=== PATIENT | female | born 1985 | race Caucasian/White ===

== ENCOUNTER 2019-06-12 12:25 | Observation (INO) | payer OTHER ==
--- NOTE | 2019-06-12 13:24 | RAD REPORT ---
EXAM DESCRIPTION: CT - Head Brain Wo Cont - 06/12/2019 1:18 pm CLINICAL HISTORY: NUMBNESS Headache, drowsiness COMPARISON: No comparisons TECHNIQUE: All CT scans are performed using dose optimization technique as appropriate and may inclu de automated exposure control or mA/KV adjustment according to patient size. FINDINGS: No intracranial hemorrhage, hydrocephalus or extra-axial fluid collection.No areas of brai n edema or evidence of midline shift. The paranasal sinuses and mastoids are clear. The calvarium is intact. IMPRESSION: No acute intracranial abnormality.
[2019-06-12 13:27] LABS: Absolute Lymphocytes (CBC) 1.6 K/uL (0.7-4.9); Basophils % 0.7 % (0-1.3); Hematocrit 40.7 % (36.0-45.0); Lymphocytes % 18.3 % (15.3-44.8); MPV 10.2 fL (7.6-11.3); RBC Red Blood Cell Count 4.59 M/uL (3.86-4.86)
[2019-06-12 13:59] LABS: Potassium 3.9 mmol/L (3.5-5.1)
[2019-06-12] MEDS ORDERED: METOCLOPRAMIDE 10 MG/2mL INJ ONE (14:03)
[2019-06-12] MEDS ORDERED: DIPHENHYDRAMINE 50 MG/ML VIAL ONE (14:04)
--- NOTE | 2019-06-12 14:09 | EDPHYS ---
Physician Documentation [facility] Name: Saira Dixon Age: 34 yrs Sex: Female : 1985 Arrival Date: 06/12/2019 Time: 12:27 Bed 26 Private MD: ED Physician Brendan Potter HPI: 06/12 13:51 This 34 yrs old Female presents to ER via Ambulatory with complaints of gs Numbness. 13:51 The patient's problem is reported as paresthesias, in left side of face, really gs hyperesthesia. Onset: The symptoms/episode began/occurred today, at 00:00. Duration: The episode is continuous. Context: occurred at home. The symptoms are alleviated by nothing. The symptoms are aggravated by nothing. Associated signs and symptoms: Pertinent positives: headache. Severity of symptoms: At their worst the symptoms were moderate in the emergency department the symptoms are unchanged. The patient has experienced similar episodes in the past, a few times. 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 - Social history:: Smoking status: unknown. - Ebola Screening: : No symptoms or risks identified at this time. ROS: 13:51 All other systems are negative. gs Exam: 13:51 Head/Face: Normocephalic, atraumatic. Eyes: Pupils equal round and reactive to light, gs extra-ocular motions intact. Lids and lashes normal. Conjunctiva and sclera are non-icteric and not injected. Cornea within normal limits. Periorbital areas with no swelling, redness, or edema. ENT: Nares patent. No nasal discharge, no septal abnormalities noted. Tympanic membranes are normal and external auditory canals are clear. Oropharynx with no redness, swelling, or masses, exudates, or evidence of obstruction, uvula midline. Mucous membranes moist. Neck: Trachea midline, no thyromegaly or masses palpated, and no cervical lymphadenopathy. Supple, full range of motion without nuchal rigidity, or vertebral point tenderness. No Meningismus. Chest/axilla: Normal chest wall appearance and motion. Nontender with no deformity. No lesions are appreciated. Cardiovascular: Regular rate and rhythm with a normal S1 and S2. No gallops, murmurs, or rubs. Normal PMI, no JVD. No pulse deficits. Respiratory: Lungs have equal breath sounds bilaterally, clear to auscultation and percussion. No rales, rhonchi or wheezes noted. No increased work of breathing, no retractions or nasal flaring. Abdomen/GI: Soft, non-tender, with normal bowel sounds. No distension or tympany. No guarding or rebound. No evidence of tenderness throughout. Back: No spinal tenderness. No costovertebral tenderness. Full range of motion. Skin: Warm, dry with normal turgor. Normal color with no rashes, no lesions, and no evidence of cellulitis. MS/ Extremity: Pulses equal, no cyanosis. Neurovascular intact. Full, normal range of motion. 13:51 Constitutional: The patient appears alert, awake, comfortable. 13:51 Neuro: Orientation: is normal, Mentation: is normal, Memory: is normal, Cranial nerves: normal except increased pain left face, Cerebellar function: is grossly normal, Motor: is normal, Sensation: pin prick testing is normal. Vital Signs: 13:14 BP 141 / 92; Pulse 85; Resp 18; Pulse Ox 100% on R/A; mg2 14:30 BP 134 / 85; Pulse 83; Resp 18; Pulse Ox 100% on R/A; mg2 15:21 BP 124 / 77; Pulse 99; Resp 18; Pulse Ox 99% on R/A; mg2 15:45 BP 124 / 66; Pulse 90; Resp 18; Temp 98.5; Pulse Ox 100% on R/A; Pain 0/10; mg2 NIH Stroke Scale Scores: 14:06 NIHSS Score: 0 gs 15:21 NIHSS Score: 0 mg2 MDM: 13:00 Patient medically screened. 13:51 Differential diagnosis: CVA, TIA, metabolic disorder, migraine,trigeminal neuralgia. Data reviewed: vital signs, nurses notes. Response to treatment: the patient's symptoms have markedly improved after treatment, and as a result, I will discharge patient. 14:08 ED course: no tpa outside of both windows. 06/12 13:03 Order name: CBC with Diff; Complete Time: 14:03 06/12 13:03 Order name: Basic Metabolic Panel; Complete Time: 14:03 06/12 13:07 Order name: CT Head Brain wo Cont; Complete Time: 13:26 06/12 13:03 Order name: EKG; Complete Time: 13:05 06/12 13:03 Order name: EKG - Nurse/Tech; Complete Time: 13:05 Administered Medications: 14:13 Drug: Benadryl 12.5 mg Route: IVP; Site: right antecubital; mg2 16:02 Follow up: Response: No adverse reaction; Marked relief of symptoms mg2 14:14 Drug: Reglan 5 mg Route: IVP; Site: right antecubital; mg2 16:02 Follow up: Response: No adverse reaction; Marked relief of symptoms mg2 Disposition: 06/12/19 14:08 Hospitalization ordered by Delicia Bradley for Observation. Preliminary diagnosis are Headache, Atypical facial pain. - Bed requested for Telemetry/MedSurg (observation). - Status is Observation. mg2 - Condition is Stable. - Problem is new. - Symptoms are unchanged. UTI on Admission? No NIH Stroke Scale - NIH Stroke Score Date: 06/12/2019 Time: 14:06 Total Score = 0 1a. Level of Consciousness (LOC) - 0(Alert) 1b. Level of Consciousness (LOC) (Year \T\ Age) - 0(Both) 1c. LOC Commands (Open \T\ Closes Eyes/Agricultural Engineer) - 0(Both) 2. Best Gaze (Lateral Gaze Paresis) - 0(Normal) 3. Visual Field Loss - 0(No visual loss) 4. Facial Palsy - 0(Normal) 5a. Left Arm: Motor (10-second hold) - 0(No drift) 5b. Right Arm: Motor (10-second hold) - 0(No drift) 6a. Left Leg: Motor (5-second hold - always test supine) - 0(No drift) 6b. Right Leg: Motor (5-second hold - always test supine) - 0(No drift) 7. Limb Ataxia (finger/nose \T\ heel/moody - test with eyes open) - 0(Absent) 8. Sensory Loss (pinprick arms/legs/face) - 0(Normal) 9. Best Language: Aphasia (description/naming/reading) - 0(No aphasia) 10. Dysarthria (speech clarity - read or repeat words) - 0(Normal) 11. Extinction and Inattention (visual/tactile/auditory/spatial/personal) - 0(No abnormality) Initials: NIH Stroke Scale - NIH Stroke Score Date: 06/12/2019 Time: 15:21 Total Score = 0 1a. Level of Consciousness (LOC) - 0(Alert) 1b. Level of Consciousness (LOC) (Year \T\ Age) - 0(Both) 1c. LOC Commands (Open \T\ Closes Eyes/Agricultural Engineer) - 0(Both) 2. Best Gaze (Lateral Gaze Paresis) - 0(Normal) 3. Visual Field Loss - 0(No visual loss) 4. Facial Palsy - 0(Normal) 5a. Left Arm: Motor (10-second hold) - 0(No drift) 5b. Right Arm: Motor (10-second hold) - 0(No drift) 6a. Left Leg: Motor (5-second hold - always test supine) - 0(No drift) 6b. Right Leg: Motor (5-second hold - always test supine) - 0(No drift) 7. Limb Ataxia (finger/nose \T\ heel/moody - test with eyes open) - 0(Absent) 8. Sensory Loss (pinprick arms/legs/face) - 0(Normal) 9. Best Language: Aphasia (description/naming/reading) - 0(No aphasia) 10. Dysarthria (speech clarity - read or repeat words) - 0(Normal) 11. Extinction and Inattention (visual/tactile/auditory/spatial/personal) - 0(No abnormality) Initials: mg2 Signatures: Dispatcher [employer] EDW[facility] Jaimie Akins Gregory, MD MD Tulio Smart RN RN mg2 Corrections: (The following items were deleted from the chart) 15:17 14:08 Hospitalization Ordered by Delicia Bradley MD for Observation. Preliminary bd diagnosis is Headache; Atypical facial pain. Bed requested for Telemetry/MedSurg (observation). Status is Observation. Condition is Stable. Problem is new. Symptoms are unchanged. UTI on Admission? No. 16:03 15:17 06/12/2019 14:08 Hospitalization Ordered by Delicia Bradley MD for mg2 Observation. Preliminary diagnosis is Headache; Atypical facial pain. Bed requested for Telemetry/MedSurg (observation). Status is Observation. Condition is Stable. Problem is new. Symptoms are unchanged. UTI on Admission? No. bd
--- NOTE | 2019-06-12 14:09 | ER ---
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 Wagoner and out on gabapentin and aspirin, states Dr. Wagoner told her she had several mini strokes. Transition of care: patient was not received from another setting of care. Onset of symptoms was June 12, 2019. Risk Assessment: Do you want to hurt yourself or someone else? Patient reports no desire to harm self or others. Initial Sepsis Screen: Does the patient meet any 2 criteria? No. Patient's initial sepsis screen is negative. Does the patient have a suspected source of infection? No. Patient's initial sepsis screen is negative. Care prior to arrival: None. 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 - Social history:: Smoking status: unknown. - Ebola Screening: : No symptoms or risks identified at this time. Screenin:15 Abuse screen: Denies threats or abuse. Denies injuries from another. Nutritional mg2 screening: No deficits noted. Tuberculosis screening: No symptoms or risk factors identified. Fall Risk IV access (20 points). 15:21 Patient has been NPO before screening. The patient is alert, able to follow commands. mg2 The patient does not exhibit slurred or garbled speech The patient is not exhibiting difficulty speaking. The patient does not exhibit difficulty understanding words. The patient is able to swallow own secretions with no drooling or need for suction. Patient tolerated one teaspoon of water. No drooling, immediate coughing, gurgling, or clearing of the throat was noted. The patient tolerated 90mL of water. No drooling, immediate coughing, gurgling, or clearing of the throat was noted. The patient passed the bedside swallow screening. Oral medications may be given as ordered. Contact Physician for further diet orders. Assessment: 13:17 Reassessment: patient sent to MRI via wheelchair. General: Appears in no apparent mg2 distress. comfortable, Behavior is calm, cooperative. Pain: Denies pain. Neuro: Level of Consciousness is awake, alert, obeys commands, Oriented to person, place, time, situation, Reports numbness in left arm since last night \T\ 1000 PM last night. Cardiovascular: Capillary refill < 3 seconds Patient's skin is warm and dry. Respiratory: Airway is patent Respiratory effort is even, unlabored, Respiratory pattern is regular, symmetrical. GI: No signs and/or symptoms were reported involving the gastrointestinal system. : No signs and/or symptoms were reported regarding the genitourinary system. EENT: No signs and/or symptoms were reported regarding the EENT system. Derm: Skin is intact, is healthy with good turgor, Skin is pink, warm \T\ dry. normal. Musculoskeletal: Circulation, motion, and sensation intact. Capillary refill < 3 seconds. 15:30 Reassessment: dr maryuri parker came and examined the patient and advised for admission. mg2 patient informed about the room assignment. nurse will call me back to receive the report. Vital Signs: 13:14 BP 141 / 92; Pulse 85; Resp 18; Pulse Ox 100% on R/A; mg2 14:30 BP 134 / 85; Pulse 83; Resp 18; Pulse Ox 100% on R/A; mg2 15:21 BP 124 / 77; Pulse 99; Resp 18; Pulse Ox 99% on R/A; mg2 15:45 BP 124 / 66; Pulse 90; Resp 18; Temp 98.5; Pulse Ox 100% on R/A; Pain 0/10; mg2 NIH Stroke Scale Scores: 14:06 NIHSS Score: 0 gs 15:21 NIHSS Score: 0 mg2 ED Course: 12:27 Patient arrived in ED. as 12:36 Brendan Potter MD is Attending Physician. gs 12:37 Jose Enrique Car, MELLY is Primary Nurse. hj 12:49 Triage completed. iw 12:54 EKG done, by licensed veterinary technician. reviewed by Brendan Potter MD. sm3 13:14 Arm band placed on. mg2 13:16 No provider procedures requiring assistance completed. Inserted saline lock: 20 gauge mg2 in right antecubital area, using aseptic technique. Blood collected. 13:19 Patient has correct armband on for positive identification. mg2 13:24 CT Head Brain wo Cont In Process Unspecified. EDMS 14:05 Tulio Smart, RN is Primary Nurse. mg2 14:07 Brendan Potter MD is Hospitalizing Provider. gs 14:07 Delicia Bradley MD is Hospitalizing Provider. gs 15:21 Patient admitted, IV remains in place. mg2 16:03 urine test negative. mg2 Administered Medications: 14:13 Drug: Benadryl 12.5 mg Route: IVP; Site: right antecubital; mg2 16:02 Follow up: Response: No adverse reaction; Marked relief of symptoms mg2 14:14 Drug: Reglan 5 mg Route: IVP; Site: right antecubital; mg2 16:02 Follow up: Response: No adverse reaction; Marked relief of symptoms mg2 Outcome: 14:08 Decision to Hospitalize by Provider. gs 15:54 Admitted to Med/surg accompanied by genaro, via wheelchair, room 211, with chart, Report mg2 called to MELLY Palacios 15:54 Condition: stable 15:54 Instructed on the need for admit, Demonstrated understanding of instructions. 16:03 Patient left the ED. mg2 NIH Stroke Scale - NIH Stroke Score Date: 06/12/2019 Time: 14:06 Total Score = 0 1a. Level of Consciousness (LOC) - 0(Alert) 1b. Level of Consciousness (LOC) (Year \T\ Age) - 0(Both) 1c. LOC Commands (Open \T\ Closes Eyes/Owner Oral Surgeon) - 0(Both) 2. Best Gaze (Lateral Gaze Paresis) - 0(Normal) 3. Visual Field Loss - 0(No visual loss) 4. Facial Palsy - 0(Normal) 5a. Left Arm: Motor (10-second hold) - 0(No drift) 5b. Right Arm: Motor (10-second hold) - 0(No drift) 6a. Left Leg: Motor (5-second hold - always test supine) - 0(No drift) 6b. Right Leg: Motor (5-second hold - always test supine) - 0(No drift) 7. Limb Ataxia (finger/nose \T\ heel/moody - test with eyes open) - 0(Absent) 8. Sensory Loss (pinprick arms/legs/face) - 0(Normal) 9. Best Language: Aphasia (description/naming/reading) - 0(No aphasia) 10. Dysarthria (speech clarity - read or repeat words) - 0(Normal) 11. Extinction and Inattention (visual/tactile/auditory/spatial/personal) - 0(No abnormality) Initials: NIH Stroke Scale - NIH Stroke Score Date: 06/12/2019 Time: 15:21 Total Score = 0 1a. Level of Consciousness (LOC) - 0(Alert) 1b. Level of Consciousness (LOC) (Year \T\ Age) - 0(Both) 1c. LOC Commands (Open \T\ Closes Eyes/Owner Oral Surgeon) - 0(Both) 2. Best Gaze (Lateral Gaze Paresis) - 0(Normal) 3. Visual Field Loss - 0(No visual loss) 4. Facial Palsy - 0(Normal) 5a. Left Arm: Motor (10-second hold) - 0(No drift) 5b. Right Arm: Motor (10-second hold) - 0(No drift) 6a. Left Leg: Motor (5-second hold - always test supine) - 0(No drift) 6b. Right Leg: Motor (5-second hold - always test supine) - 0(No drift) 7. Limb Ataxia (finger/nose \T\ heel/moody - test with eyes open) - 0(Absent) 8. Sensory Loss (pinprick arms/legs/face) - 0(Normal) 9. Best Language: Aphasia (description/naming/reading) - 0(No aphasia) 10. Dysarthria (speech clarity - read or repeat words) - 0(Normal) 11. Extinction and Inattention (visual/tactile/auditory/spatial/personal) - 0(No abnormality) Initials: mg2 Signatures: Dispatcher [employer] Ayah Burr Irene, RN RN Jose Enrique Car RN RN Brendan Potter MD MD Tuloi Smart RN RN [facility] Leandra Wells sm3 Corrections: (The following items were deleted from the chart) 15:54 15:45 BP 114 / 56; Pulse 90bpm; Resp 18bpm; Pulse Ox 100% RA; Temp 98F; Pain mg2 0/10; mg2
[2019-06-12 16:09] LABS: Urine Blood 1+ (NEG); Urine Glucose NEGATIVE (NEG); Urine Protein NEGATIVE (NEG); Urine Specific Gravity 1.015 (1.005-1.030)
--- NOTE | 2019-06-12 16:10 | EKG ---
Test Date: 2019-06-12 Test Time: 12:48:35 Chargemaster Specialist: IESHA MEASUREMENT RESULTS: Intervals: Rate: 79 AL: 142 QRSD: 82 QT: 360 QTc: 412 [place]: P: 60 AL: 142 QRS: 58 T: 56 INTERPRETIVE STATEMENTS: Normal sinus rhythm Possible Anterior infarct, age undetermined Abnormal ECG No previous ECG available for comparison Electronically Signed On 06-12-19 16:09:22 CDT by Hira Palomo
[2019-06-12] MEDS ORDERED: ACETAMINOPHEN 500 MG TAB PO PRN (16:34)
[2019-06-12] MEDS ORDERED: ONDANSETRON 4 MG/2 ML VIAL IV PRN (16:34)
[2019-06-12] MEDS: ENOXAPARIN 40 MG/0.4 ML SQ SCH (17:20)
[2019-06-12] MEDS: NA CHLORIDE 0.9% 1,000 ML IV SCH (17:21)
--- NOTE | 2019-06-12 18:40 | RAD REPORT ---
EXAM DESCRIPTION: US - CP - 06/12/2019 6:08 pm CLINICAL HISTORY: CVA COMPARISON: None. TECHNIQUE: Real-time sonographic evaluation of both carotid systems was performed. Muro scale and Do ppler interrogation were performed with waveform tracing bilaterally. FINDINGS: Normal high resistance waveforms are noted in both external carotid arteries. The common c arotid arteries and internal carotid arteries show normal low resistance waveforms. No significant plaque formation is seen. Peak systolic and end diastolic velocity values and the ICA/ CCA ratios are in the non-hemodynamically significant range. Antegrade flow seen in both vertebral arteries. Velocity values and ratios were recorded and are retained in the patient's imaging records. IMPRESSION: No significant atherosclerotic changes noted. No evidence of a hemodynamically significant stenosis.
[2019-06-12 18:47] LABS: Folic Acid, (Folate) 12.7 ng/mL (3.1-17.5)
[2019-06-12] MEDS ORDERED: GABAPENTIN 300 MG CAP PO SCH (21:00)
[2019-06-12] MEDS ORDERED: HOME MED 1 EA UNK (Gabapentin [Neurontin] 600 MG) PO SCH (21:00)
[2019-06-12] MEDS ORDERED: ATORVASTATIN 40 MG TAB PO SCH (21:00)
[2019-06-12 22:05] LABS: RPR (Rapid Plasma Reagin) NON-REACT (NON-REACT)
--- NOTE | 2019-06-13 02:33 | HP ---
Date of Admission: 06/12/2019 Chief Complaint: Facial paresthesia, numbness and tingling, including weakness in the left side. Consultants: Dr. Wagoner with Neurology. History Of Present Illness: Patient is a 34-year-old female with past medical history of apparent st roke last year according to the patient, who comes in with paresthesias and headache. Headache is on the left side of the face behind her eye. Paresthesias are also on the left side of the face. Charu ent also reports some weakness on the left side of her body. Patient's symptoms began suddenly at re st. No alleviating or aggravating factors. Patient does not take any medications to help with her p ain. Otherwise, she denies any nausea, vomiting, fever, chills, chest pain or shortness of breath. No new medications. Patient contacted her neurologist's office and was recommended to go to the ER f or further evaluation. In the ER, her workup showed normal head CT scan. Dr. Wagoner was contacted by the ER physician, Dr. Gonzalez. He recommended MRI of the brain and further evaluation to rule out stroke. When seen in the ER, the patient was awake, alert, oriented x3, in some mild distress. Past Medical History: Apparent history of CVA without any residual deficits. Patient states that sh e does have weakness on the left side. Past Surgical History: Breast reduction 2 years ago. Allergies: NO KNOWN DRUG ALLERGIES. Medications: Patient takes gabapentin. Family History: Patient denies any family history of diabetes, hypertension, stroke or heart disease . Social History: Patient denies any tobacco use or alcohol use. Works at [employer]. No illicit drug use. Patient does have 2 children. Review of Systems: An 11-point system reviewed, negative except as per HPI. Physical Examination: Vital Signs: Blood pressure 141/92, pulse 85, respirations 18, O2 100% on room air. General: Awake, alert, oriented x3. No acute distress. HEENT: Normocephalic, atraumatic. PERRLA. EOMI. Moist mucous membranes. Oropharynx is clear. Co njunctivae are anicteric. Neck: Supple. No JVD. Trachea midline. CV: S1, S2. Regular rate and rhythm. Peripheral pulses present. Respiratory: Moving air well bilaterally. No wheezing or stridor. No use of accessory muscles. Gastrointestinal: Abdomen is soft, nontender, nondistended. Positive bowel sounds. No guarding or rigidity. Extremities: No clubbing, cyanosis, or edema. No calf tenderness. Neurologic: Cranial nerves 2-12 intact grossly. Speech is normal. Patient has increased sensation to light touch on the left side of the face. Patient has 4+/5 strength on the left and 5/5 strength on the right upper and lower extremities. Skin: No rashes. Normal skin turgor. Psychiatric: Mood is okay. Affect is full. Insight and judgment are good. Laboratory Data: WBC 8.5, H and H 14 and 40.7, platelets 218, neutrophils 73%. Sodium 138, potassiu m 3.9, chloride 108, CO2 26, BUN 11, creatinine 0.85, glucose 104, calcium 8.9. CT scan of the head shows no acute intracranial abnormality. Assessment: A 34-year-old female with: 1.Transient ischemic attack, rule out cerebrovascular accident. Patient has facial paresthesia as w ell as weakness on the left side. Patient reports previous history of cerebrovascular accident. We will obtain MRI of the brain stroke protocol. We will discuss further with Dr. Wagoner, Neurology. We will start on stroke guidelines with aspirin and statin, Lovenox for deep venous thrombosis proph ylaxis. We will check lipid panel in a.m. We will obtain hypercoagulable workup. 2.History of apparent stroke in the past. 3.Deep venous thrombosis prophylaxis with Lovenox. Plan: We will admit patient to [facility] as observation. We will obtain test. Foll ow up with neurological evaluation including MRI. /ROCIO Voice ID: [id number]
[2019-06-13] MEDS: NA CHLORIDE 0.9% 1,000 ML IV SCH (05:17)
[2019-06-13 05:57] LABS: Absolute Lymphocytes (CBC) 2.4 K/uL (0.7-4.9); Basophils % 0.6 % (0-1.3); Hematocrit 39.2 % (36.0-45.0); Lymphocytes % 31.9 % (15.3-44.8); MPV 9.8 fL (7.6-11.3); RBC Red Blood Cell Count 4.37 M/uL (3.86-4.86)
[2019-06-13 06:20] LABS: Albumin 3.4 g/dL (3.4-5.0); Bilirubin Total 0.4 mg/dL (0.2-1.0); Magnesium 2.2 mg/dL (1.8-2.4); Potassium 3.7 mmol/L (3.5-5.1); Protein, Total 7.1 g/dL (6.4-8.2)
[2019-06-13] MEDS ORDERED: ASPIRIN EC 81 MG TAB PO SCH (09:00)
[2019-06-13] MEDS ORDERED: POTASSIUM CL SA 10 MEQ TAB PO ONE (09:00)
[2019-06-13] MEDS: ENOXAPARIN 40 MG/0.4 ML SQ SCH (09:00)
[2019-06-13] MEDS ORDERED: OXcarbazepine 150 MG TAB PO SCH (09:35)
--- NOTE | 2019-06-13 10:05 | ECHO ---
HEIGHT: 5 ft 1 in WEIGHT: 197 lb 12.8 oz DATE OF STUDY: 06/13/[address]: Delicia Bradley MD 2-DIMENSIONAL: YES M.MODE: YES DOPPLER: YES COLOR FLOW: YES TDS: NO PORTABLE: NO DEFINITY: NO BUBBLE STUDY: YES DIAGNOSIS: STROKE CARDIAC HISTORY: CATHERIZATION: NO SURGERY: NO PROSTHETIC VALVE: NO PACEMAKER: NO MEASUREMENTS (cm) DIASTOLIC (NORMALS) SYSTOLIC (NORMALS) IVSd 1.0 (0.6-1.2) LA Diam 2.5 (1.9-4.0) LVEF 66% LVIDd 4.7 (3.5-5.7) LVIDs 3.0 (2.0-3.5) %FS 36% LVPWd 1.1 (0.6-1.2) Ao Diam 2.3 (2.0-3.7) 2 DIMENSIONAL ASSESSMENT: RIGHT ATRIUM: NORMAL LEFT ATRIUM: NORMAL RIGHT VENTRICLE: NORMAL LEFT VENTRICLE: NORMAL TRICUSPID VALVE: NORMAL MITRAL VALVE: NORMAL PULMONIC VALVE: NORMAL AORTIC VALVE: NORMAL PERICARDIAL EFFUSION: NONE AORTIC ROOT: NORMAL LEFT VENTRICULAR WALL MOTION: NORMAL DOPPLER/COLOR FLOW: NORMAL COMMENTS: NORMAL 2D ECHOCARDIOGRAM WITH DOPPLER. SALINE CONTRAST REVEALS RIGHT TO LEFT INTRA ATRIAL FLOW. RECOMMEND Trans Esophageal Echocardiogram. TECHNOLOGIST: Jim ROMAN
--- NOTE | 2019-06-13 13:16 | RAD REPORT ---
EXAM DESCRIPTION: MRI - Brain W/Wo Cont - 06/13/2019 1:04 pm CLINICAL HISTORY: facial paresthesia, eval for stroke Headache, drowsiness, CVA symptomology COMPARISON: MRA Head Wo Cont dated 06/13/2019; Carotid Artery Bilateral dated 06/12/2019; Head Brain W o Cont dated 06/12/2019 TECHNIQUE: Multi-sequence, multiplanar MR imaging of the brain was performed with contrast. FINDINGS: No intracranial hemorrhage, hydrocephalus, or extra-axial fluid collection. No edema or sh ift of midline structures. No intracranial mass. DWI is negative for acute CVA. The midline structures are normally formed. Mastoid air cells and paranasal sinuses are clear. Post-contrast images show no abnormal enhancement to suggest tumor or infection. IMPRESSION: No acute or concerning intracranial abnormalities. No pathologic post-contrast enhancement suspected.
--- NOTE | 2019-06-13 13:17 | RAD REPORT ---
EXAM DESCRIPTION: MRI - MRA Head Wo Cont - 06/13/2019 1:03 pm CLINICAL HISTORY: facial paresthesia, rule out stroke CVA COMPARISON: Head Brain Wo Cont dated 06/12/2019; Brain W/Wo Cont dated 06/13/2019 FINDINGS: 3D noncontrast [id number] MR angiography of the [place] was performed. No aneurysm, flow-limiting stenosis or vascular malformation is seen. Forward flow seen in left-sided dominant vertebral arteries. The visualized dural venous sinuses appear patent. IMPRESSION: No significant flow abnormality of the [place] is identified.
--- NOTE | 2019-06-13 13:20 | RAD REPORT ---
EXAM DESCRIPTION: MRI - MRA Neck W/Wo Cont - 06/13/2019 1:04 pm CLINICAL HISTORY: facial paresthesia, eval for stroke Headache, CVA symptomology COMPARISON: No comparisons FINDINGS: Contrast enhance 2D [id number] MR angiography of the neck vessels was performed. A left aortic arch is identified with normal branching pattern. Both subclavian arteries and common c arotid arteries are normal. Both internal carotid arteries demonstrate normal flow. No carotid stenos is or flow attenuation seen. Antegrade flow seen in both vertebral artery, left-sided dominant. IMPRESSION: No significant flow abnormality of the neck vessels identified.
[2019-06-13] MEDS ORDERED: ENOXAPARIN 40 MG/0.4 ML SQ SCH (17:00)
--- NOTE | 2019-06-13 19:32 | CON ---
Reason For Consultation: Consultation called because of possible stroke after having left-sided numb ness and mild weakness. History Of Present Illness: Ms. Dixon is a 34-year-old right-handed patient, whom I have s een in clinic for the last 4 years for complicated migraine and ischemic stroke that is chronic on th e right brain with left-sided symptoms. The stroke was identified on MRI, and on February 10, 2016, has a 4 mm area in the deep periventricular white matter from left frontal lobe. It should be noted lashay t the stroke is contralateral to the patient's clinical symptoms. She has been treated for migraine and has had multiple episodes of left-sided numbness and weakness that resolves to baseline after her headache subsides. The current admission to [facility] occurred on the after she had numbness, tingling, and mild weakness of the left face, arm, and leg. She had a mild headache. Her head CT scan was unremarkable for any acute ischemic or hemorrhagic change. Subsequent brain MRI don e on the this earlier today actually identified no acute ischemic or hemorrhagic change and no c hronic ischemic events, as that was identified on the study back in 2015. Magnetic resonance angiogr ams of her head and neck revealed no significant stenosis. Her echocardiogram did identify mild sali ne contrast moving from right to left consistent with a possible small [id number] intra-atrial armand nt. Transesophageal echocardiogram was recommended. Patient was seen by corporate manager, Dr. Kenji rodriguez and will follow up in the clinic. The recommendation was to take 81 mg aspirin along with Plavix 75 mg daily. Carotid doppler showed no hemodynamically significant stenosis. Patient said she actu ally returned towards baseline level of function with some mild chronic left-sided numbness and sligh t weakness. Past Medical History: As indicated. Surgical History: Breast reduction 2 years ago. Allergies: NO KNOWN DRUG ALLERGIES. Medications: Gabapentin. Family History: No history of stroke or seizures. Social History: No IV drugs, alcohol, or cocaine. She has 2 healthy children. Review of Systems: Aside from mentioned above, she denies any recent fevers or chills, nausea, vomiting, myalgias, arthr algias, or rash. Physical Examination: Vital Signs: Blood pressure 122/67, pulse 55, respiratory rate 16, temperature 97.1, oxygen saturati on 98%. Her weight is 197 pounds, height 5 feet 1 inch. General: Ms. Dixon is resting in bed. She is in no acute distress. HEENT: She is normocephalic, atraumatic. Sclerae anicteric. Oropharynx is pink and moist. Neck: Supple. Chest: Clear. Heart: Regular. Extremities: Show no clubbing, cyanosis, or edema. Neurologic: She has a slight decrease to light touch, temperature of the left V1, V2, and V3 distrib ution compared to the right side. She denies loss of sensation on the left arm compared to the right or left leg compared to the right. Motor examination, she has subtle weakness in the left upper ext remity at 4/5 compared to the right side 5/5. On the lower extremities bilaterally, 5/5. Coordinati on exam intact in the upper and lower extremities. Gait: Normal stance, stride, and arm swing. Laboratory Studies: Complete blood count with differential is normal. Coagulation panel is normal. Chemistries remarkable for slightly elevated chloride, slightly low GFR. Magnesium and calcium unre markable. Liver function studies are normal. Cholesterol panel unremarkable. Vitamin B12 444, clay min D 44.3, folate in the serum level 12.7. Serum test was negative. RPR negative. She h as pending stroke and the blood work. Assessment: Ms. Dixon is a 34-year-old patient with chronic stroke. However, the MRI recently done did not identify any chronic ischemic events. She has no acute ischemic or hemorrhagic events. She has a possible [id number]-[id number] shunt in atrial that is an atrial septal defect. Plan: 1.Aspirin 81 mg, Plavix 75 mg daily. 2.Hydrate with 8 to 10 glasses of water daily. 3.30 minutes of brisk exercise daily. 4.She may be discharged home and follow up with Dr. Wagoner in 1 month, Dr. Mercer in 2 weeks for f urther evaluation and possible transesophageal echocardiogram. She may maintain a headache diary and may consider diclofenac for abortive headache treatment. CHANEL/ROCIO Voice ID: [id number] Report ID: [id number]
--- NOTE | 2019-06-14 02:01 | DS ---
Date of Discharge: 06/13/2019 Risk Management Professional: Dr. Wagoner with Neurology. Procedures: None. Discharge Diagnoses: 1.Facial paresthesia, transient ischemic attack, cerebrovascular accident ruled out. 2.History of apparent stroke in the past. 3.Obesity, body mass index 37. 4.Patent foramen ovale. Hospital Course: Patient is a 34-year-old female with past medical history of migraines with neurolo gical symptoms who had been seeing Neurology as outpatient, comes in with similar symptoms of facial hyperesthesia along with numbness, tingling, and weakness on the left side. Patient stated that she had a history of stroke, however, was not taking her aspirin and Plavix, this was a year ago. Jessie coronel was admitted to the hospital for stroke workup. She was started on stroke guidelines. Workup incl uding carotid artery ultrasound was done, which was negative. CT scan of the head initially did not show any bleed. Her echocardiogram with bubble study did show a patent foramen ovale. Case was disc ussed with Dr. Mercer, [place], who recommended outpatient followup with him to have NICOLE schedul ed and recommended aspirin and Plavix. Dr. Wagoner with Neurology who the patient has been seeing a s an outpatient was also consulted. Patient's brain MRI and MRA as well as neck MRA did not show any acute changes. There is no history of previous stroke. After further discussion, the patient likel y has had some micro-ischemic changes from the recurrent migraines with neurological symptoms. John bravo was started on trileptal for possibility of trigeminal neuralgia and gabapentin was discontinued. Patient did have improvement in her symptoms. Patient's weakness also improved. She was able to to lerate her diet, did not have any swallowing problems. She was able to ambulate without difficulty. Hypercoagulable workup was also initiated. She will need to follow up with Dr. Wagoner for further test results from the hypercoagulable workup. Patient was then cleared for discharge and was sent h [facility] in a stable condition. Activity: As tolerated. Medications: As per medication reconciliation list. Followup: Follow up with primary care physician in 2-3 days. Follow up with [place], Dr. Joe roche, in 2 weeks to have transesophageal echocardiogram scheduled. Follow up with neurologist, Dr. Vern gonzalez in 1-2 weeks. Return to ER for worsening condition. Diet: Heart healthy. Physical Examination: General: Awake, alert, oriented x3, obese female. CV: S1-S2. No murmurs. Respiratory: Moving air well bilaterally. Abdomen: Soft, nontender, nondistended. Positive bowel sounds. Extremities: No clubbing, cyanosis, or edema. Neuro: Patient has some hyperesthesia to the left side of her face and some minimal weakness on the left upper and lower extremity, 4+/5 right upper extremity and lower extremity are 5/5 strength. /ROCIO Voice ID: [id number] Report ID: [id number]
[2019-06-17 12:33] LABS: Prothrombin Gene Analysis Test REPORT
[2019-06-17 13:41] LABS: Protein C Antigen 110 % (70-140)
[2019-06-18 20:06] LABS: Albumin, (SPE) 4.1 g/dL (3.8-4.8); Alpha-1-Globulins 0.3 g/dL (0.2-0.3); Alpha-2-Globulins 0.6 g/dL (0.5-0.9); Gamma Globulins 1.3 g/dL (0.8-1.7); INTERPRETATION REPORT
== END 2019-06-13 14:28 | disposition home or self-care (01) ==
LOC: ER 12:25 → ERHOLD 14:44 → 2ND 15:54
PROVIDERS: ADMIT Family Medicine; ATTEND Family Medicine
DX: R20.2 Paresthesia of skin (principal); E66.9 Obesity, unspecified; Z68.37 Body mass index [BMI] 37.0-37.9, adult; Z86.73 Personal history of transient ischemic attack (TIA), and cerebral infarction without residual deficits
CPT/HCPCS: 93005; 93306; 85025 ×2; 80048; 36415; 83735; 84703; 81025; 80061; 86592; 85652; 81003; 82746; 82607; 80053; 81241; 81240; 82306; 83090; 85300; 85302; 85305; 85306; 86021 ×2; 86147 ×2; 84165; 70450; 93880; 70553; 70544; 70549; 92523; 92610; 97116; 97161; 94760 ×3; 96375; 96374; 99285; A9577; J2765; J1650; J7030 ×2; G0378 ×2